=== PATIENT | male | born 1945 | race Caucasian/White ===

== ENCOUNTER 2019-07-19 10:14 | Outpatient (CLI) | payer BC ==
--- NOTE | 2019-07-19 11:47 | ULT ---
THYROID ULTRASOUND: HISTORY: Thyroid nodule. COMPARISON: None. FINDINGS: Thyroid isthmus measures 0.5 cm. Left thyroid lobe measures 1.4 x 3.3 x 1 2 cm. Right thyroid lobe measures 4.0 x 1.5 x 1.5 cm. Diffuse heterogeneity throughout the thyroid gland. Questionable ill-defined nodule in the mid latera l aspect of the right thyroid lobe measuring 0.7 x 0.4 x 0.5 cm. IMPRESSION: 1. Diffuse heterogeneity throughout the thyroid gland. 2. Subcentimeter solid nodule in the left thyroid lobe. Comparison with prior imaging would be benefi cial. Transcribed Date/Time: 07/19/2019 11:47 AM
== END 2019-07-19 10:15 | disposition home or self-care (01) ==
LOC: SCSULT 10:14
PROVIDERS: ATTEND Family Medicine
DX: E04.1 Nontoxic single thyroid nodule (principal); R93.89 Abnormal findings on diagnostic imaging of other specified body structures
CPT/HCPCS: 76536

== ENCOUNTER 2022-07-22 13:47 | Outpatient (CLI) | payer BC ==
[2022-07-22 15:12] LABS: Hemoglobin 16.9 g/dL (13.5-17.5); Mean Corpuscular HGB CONC 35.6 g/dL (32.0-36.0); Mean Corpuscular Hemoglobin 31.5 pg (27.0-33.0); Mean Corpuscular Volume 88.6 fl (81.2-95.1); Mean Platelet Volume 10.7 fl (7.4-10.4); Platelet Count 225 10x3/uL (150-450); RBC Distribution Width 12.8 % (11.5-14.5); Red Blood Cell (RBC) Count 5.36 10x6/uL (4.32-5.72); White Blood Cell (WBC) Count 7.1 10x3/uL (3.5-10.5)
[2022-07-22 15:32] LABS: Anion Gap 14 mmol/L (10-20); BUN (Urea Nitrogen) 12 mg/dL (8.4-25.7); Calc. Creatinine Clearance 0 mL/min (70-130); Calcium 9.3 mg/dL (7.8-10.44); Carbon Dioxide 22 mmol/L (23-31); Chloride 108 mmol/L (98-107); Estimated GFR 58; Glucose 102 mg/dL (83-110); Potassium 4.5 mmol/L (3.5-5.1); Sodium 139 mmol/L (136-145)
== END 2022-07-22 13:48 | disposition home or self-care (01) ==
LOC: LABBT 13:47
PROVIDERS: ATTEND Internal Medicine Cardiovascular Disease
DX: Z01.812 Encounter for preprocedural laboratory examination (principal); R94.39 Abnormal result of other cardiovascular function study
CPT/HCPCS: 80048; 85027